=== PATIENT | male | born 1955 | race Caucasian/White ===

== ENCOUNTER 2017-08-02 12:42 | Inpatient (IN) | payer MEDICARE, MEDICAID ==
[~2017-08-02] VITALS: Ht 177.8 cm; Wt 81.7 kg
[~2017-08-02 12:42] MED LIST: AMLO-511 PO; ASPI-1132 PO; BUPR-47 PO; CARV6.2579 PO; DIVA500T69 PO; DULO60CA44 PO; FOLI1 PO; MIRALAX PO; OLAN10TA20 PO; OLAN10TA3 PO; SIMV-260 PO; THIA100 PO
[2017-08-02] MEDS ORDERED: ChlorproMAZINE HCL 100 MG TABLET PO PRN (13:30)
[2017-08-02] MEDS ORDERED: LORazepam 1 MG TABLET PO PRN (13:30)
[2017-08-02 14:01] VITALS: BP 100/65
[2017-08-02 14:47] VITALS: BP 107/71
[2017-08-02] MEDS ORDERED: INFLUENZA VIRUS VACCINE QVS 2017-18 (3YR+)/PF 60 MCG/0.5 ML SYRINGE IM ONE (15:15)
[2017-08-02 16:28] VITALS: BP 120/64
[2017-08-02] MEDS ORDERED: DULO60CA44 PO (16:43)
[2017-08-02] MEDS ORDERED: DIVA500T52 PO (16:43)
[2017-08-02] MEDS ORDERED: OLAN10TA3 PO (16:44)
[2017-08-02] MEDS ORDERED: ZIPRASIDONE HCL 60 MG CAPSULE PO SCH (17:00)
[2017-08-02] MEDS ORDERED: DIVALPROEX SODIUM 500 MG ER TABLET PO SCH (21:00)
[2017-08-03 00:37] VITALS: BP 120/61
[2017-08-03 07:56] LABS: BASOPHILS % (AUTO) 0.2 % (0.0-2.0); EOSINOPHILS % (AUTO) 0.4 % (1.0-6.0); HEMATOCRIT 33.5 % (41-53); HEMOGLOBIN 11.7 g/dL (13.5-17.5); LYMPHOCYTES # (AUTO) 1.9 K/uL (1.0-4.8); LYMPHOCYTES % (AUTO) 26.3 % (22.0-44.0); MEAN CORPUSCULAR HEMOGLOBIN 30.9 pg (26.0-34.0); MEAN CORPUSCULAR HGB CONC 34.8 G/dL (31.0-37.0); MEAN CORPUSCULAR VOLUME 89 fL (80-100); MONOCYTES # (AUTO) 0.9 K/uL (0.1-1.0); MONOCYTES % (AUTO) 12.9 % (2.0-9.0); NEUTROPHILS # (AUTO) 4.3 K/uL (1.8-7.7); NEUTROPHILS % (AUTO) 60.2 % (40.0-70.0); PLATELET COUNT (AUTO) 396 K/uL (150-450); RED BLOOD CELL COUNT(AUTO) 3.77 MIL/uL (4.50-5.90); RED CELL DISTRIBUTION WIDTH 13.1 % (11.5-14.5); WHITE BLOOD COUNT (AUTO) 7.1 K/uL (4.5-11.0)
[2017-08-03 08:00] VITALS: BP 123/76
[2017-08-03 08:28] LABS: ALANINE AMINOTRANSFERASE 43 U/L (12-78); ANION GAP 9 mmol/L (8-16); ASPARTATE AMINOTRANSFERASE 21 U/L (15-37); BILIRUBIN,TOTAL 0.5 mg/dL (0.1-1.0); CALCIUM, TOTAL 8.9 mg/dL (8.8-10.5); CARBON DIOXIDE 28 mmol/L (22-29); CHLORIDE 98 mmol/L (98-107); CHOL/HDL RATIO 2.7 (4.2-7.3); CREATININE 0.84 mg/dL (0.60-1.30); GLOMERULAR FILTR. RATE CALC > 60 mL/min (>60); POTASSIUM 3.4 mmol/L (3.5-5.1); SODIUM SERUM 135 mmol/L (136-145); THYROID STIMULATING HORMONE 0.84 uIU/mL (0.36-3.74); TOTAL PROTEIN, SERUM 7.4 g/dL (6.4-8.2); UREA NITROGEN, BLOOD 13 mg/dL (7-18); VALPROIC ACID 80 mcg/mL (50-100)
[2017-08-03] MEDS ORDERED: BuPROPion HCL XL 150 MG ER TABLET PO SCH (09:00)
[2017-08-03] MEDS ORDERED: POTASSIUM CHLORIDE 20 MEQ ER TABLET PO ONE (13:30)
[2017-08-03] MEDS ORDERED: TUBERCULIN, PURIFIED PROTEIN DERIVATIVE 5 TU/0.1 ML SYG ID ONE (16:15)
[2017-08-03] MEDS ORDERED: OLANZapine 5 MG RAPDIS TABLET PO PRN (16:15)
[2017-08-03] MEDS ORDERED: PROMETHAZINE HCL 25 MG TABLET PO PRN (16:15)
[2017-08-03] MEDS ORDERED: HydrOXYzine PAMOATE 50 MG CAPSULE PO PRN (16:15)
[2017-08-03] MEDS ORDERED: GuaiFENesin/D-METHORPHAN [SUGAR-FREE] 200-20MG/10 ML SYRUP UDCUP PO PRN (16:15)
[2017-08-03] MEDS ORDERED: MAGNESIUM HYDROXIDE SUSPENSION 30 ML UDCUP PO PRN (16:15)
[2017-08-03] MEDS ORDERED: MAG HYDROX/AL HYDROX/SIMETH ES 30 ML SUSPENSION UDCUP PO PRN (16:15)
[2017-08-03 16:41] VITALS: BP 140/69
[2017-08-03] MEDS: GABAPENTIN 300 MG CAPSULE PO SCH ×2 (17:06→20:35)
[2017-08-03] MEDS: THIAMINE HCL 100 MG TABLET PO SCH (17:06)
[2017-08-03] MEDS: DIVALPROEX SODIUM 500 MG ER TABLET PO SCH (20:35)
[2017-08-03] MEDS ORDERED: OLANZapine 5 MG RAPDIS TABLET PO SCH (21:00)
[2017-08-04 00:09] VITALS: BP 133/78
[2017-08-04] MEDS: ZOLPIDEM TARTRATE 5 MG TABLET PO PRN (00:18)
[2017-08-04 08:16] VITALS: BP 118/74
[2017-08-04] MEDS: DULoxetine HCL 20 MG CAPSULE PO SCH (09:08)
[2017-08-04] MEDS: THIAMINE HCL 100 MG TABLET PO SCH ×2 (09:08→16:39)
[2017-08-04] MEDS: GABAPENTIN 300 MG CAPSULE PO SCH ×4 (09:08→20:35)
[2017-08-04] MEDS: MULTIVITAMINS WITH MINERALS, THERAPEUTIC TABLET PO SCH (09:08)
[2017-08-04] MEDS: FOLIC ACID 1 MG TABLET PO SCH (09:08)
[2017-08-04] MEDS: ACETAMINOPHEN 325 MG TABLET PO PRN (15:59)
[2017-08-04 16:00] VITALS: BP 128/80
[2017-08-04 16:02] VITALS: BP 128/80
[2017-08-04] MEDS: OLANZapine 10 MG RAPDIS TABLET PO SCH (20:35)
[2017-08-04] MEDS: DIVALPROEX SODIUM 500 MG ER TABLET PO SCH (20:35)
[2017-08-05 01:38] VITALS: BP 132/80
[2017-08-05 08:06] VITALS: BP 141/89
[2017-08-05] MEDS: PHENYLEPHRINE/SHK LV/MIN OIL/PET 57 GM OINTMENT TP SCH ×3 (09:00→16:39)
[2017-08-05] MEDS: CHOLECALCIFEROL (VIT D3) 1,000 UNITS TABLET PO SCH (09:08)
[2017-08-05] MEDS: MULTIVITAMINS WITH MINERALS, THERAPEUTIC TABLET PO SCH (09:08)
[2017-08-05] MEDS: FOLIC ACID 1 MG TABLET PO SCH (09:08)
[2017-08-05] MEDS: GABAPENTIN 300 MG CAPSULE PO SCH ×4 (09:08→20:39)
[2017-08-05] MEDS: THIAMINE HCL 100 MG TABLET PO SCH ×2 (09:08→16:39)
[2017-08-05] MEDS: DULoxetine HCL 20 MG CAPSULE PO SCH (09:08)
[2017-08-05 16:16] VITALS: BP 139/87
[2017-08-05] MEDS: OLANZapine 10 MG RAPDIS TABLET PO SCH (20:39)
[2017-08-05] MEDS: DIVALPROEX SODIUM 500 MG ER TABLET PO SCH (20:39)
[2017-08-06 04:00] VITALS: BP 115/88
[2017-08-06] MEDS: ACETAMINOPHEN 325 MG TABLET PO PRN (04:05)
[2017-08-06 08:53] VITALS: BP 126/86
[2017-08-06] MEDS: FOLIC ACID 1 MG TABLET PO SCH (09:10)
[2017-08-06] MEDS: GABAPENTIN 300 MG CAPSULE PO SCH ×4 (09:10→20:19)
[2017-08-06] MEDS: CHOLECALCIFEROL (VIT D3) 1,000 UNITS TABLET PO SCH (09:10)
[2017-08-06] MEDS: MULTIVITAMINS WITH MINERALS, THERAPEUTIC TABLET PO SCH (09:10)
[2017-08-06] MEDS: DULoxetine HCL 20 MG CAPSULE PO SCH (09:10)
[2017-08-06] MEDS: THIAMINE HCL 100 MG TABLET PO SCH ×2 (09:10→17:09)
[2017-08-06] MEDS: PHENYLEPHRINE/SHK LV/MIN OIL/PET 57 GM OINTMENT TP SCH ×3 (09:11→17:10)
[2017-08-06 16:07] VITALS: BP 135/85
[2017-08-06] MEDS ORDERED: AZITHROMYCIN 250 MG TABLET PO ONE (20:00)
[2017-08-06] MEDS: DIVALPROEX SODIUM 500 MG ER TABLET PO SCH (20:19)
[2017-08-06] MEDS: OLANZapine 10 MG RAPDIS TABLET PO SCH (20:19)
[2017-08-07 01:00] VITALS: BP 133/94
[2017-08-07] MEDS: ACETAMINOPHEN 325 MG TABLET PO PRN ×2 (01:06→16:24)
[2017-08-07 08:39] VITALS: BP 136/85
[2017-08-07] MEDS: GABAPENTIN 300 MG CAPSULE PO SCH ×4 (08:41→20:36)
[2017-08-07] MEDS: CHOLECALCIFEROL (VIT D3) 1,000 UNITS TABLET PO SCH (08:41)
[2017-08-07] MEDS: THIAMINE HCL 100 MG TABLET PO SCH ×2 (08:41→16:38)
[2017-08-07] MEDS: DULoxetine HCL 30 MG CAPSULE PO SCH (08:41)
[2017-08-07] MEDS: MULTIVITAMINS WITH MINERALS, THERAPEUTIC TABLET PO SCH (08:41)
[2017-08-07] MEDS: FOLIC ACID 1 MG TABLET PO SCH (08:41)
[2017-08-07] MEDS: AZITHROMYCIN 250 MG TABLET PO SCH (08:41)
[2017-08-07] MEDS: PHENYLEPHRINE/SHK LV/MIN OIL/PET 57 GM OINTMENT TP SCH ×3 (08:43→16:38)
[2017-08-07] MEDS: NEOMYCIN/POLYMYXIN B/HYDROCORT 10 ML OTIC SUSPENSION AD SCH ×3 (10:00→16:38)
[2017-08-07 16:06] VITALS: BP 129/83
[2017-08-07] MEDS: OLANZapine 10 MG RAPDIS TABLET PO SCH (20:36)
[2017-08-07] MEDS: DIVALPROEX SODIUM 500 MG ER TABLET PO SCH (20:36)
[2017-08-08 04:47] VITALS: BP 111/80
[2017-08-08] MEDS: DULoxetine HCL 30 MG CAPSULE PO SCH (08:25)
[2017-08-08] MEDS: MULTIVITAMINS WITH MINERALS, THERAPEUTIC TABLET PO SCH (08:25)
[2017-08-08] MEDS: PHENYLEPHRINE/SHK LV/MIN OIL/PET 57 GM OINTMENT TP SCH ×3 (08:26→16:35)
[2017-08-08] MEDS: AZITHROMYCIN 250 MG TABLET PO SCH (08:26)
[2017-08-08] MEDS: GABAPENTIN 300 MG CAPSULE PO SCH ×4 (08:26→20:35)
[2017-08-08] MEDS: FOLIC ACID 1 MG TABLET PO SCH (08:26)
[2017-08-08] MEDS: THIAMINE HCL 100 MG TABLET PO SCH ×2 (08:26→16:35)
[2017-08-08] MEDS: CHOLECALCIFEROL (VIT D3) 1,000 UNITS TABLET PO SCH (08:26)
[2017-08-08] MEDS: NEOMYCIN/POLYMYXIN B/HYDROCORT 10 ML OTIC SUSPENSION AD SCH ×3 (08:27→16:34)
[2017-08-08 09:03] VITALS: BP 132/70
[2017-08-08 16:26] VITALS: BP 128/86
[2017-08-08] MEDS: OLANZapine 10 MG RAPDIS TABLET PO SCH (20:35)
[2017-08-08] MEDS: DIVALPROEX SODIUM 500 MG ER TABLET PO SCH (20:35)
[2017-08-08] MEDS: ZOLPIDEM TARTRATE 5 MG TABLET PO PRN (21:31)
[2017-08-08] MEDS: ACETAMINOPHEN 325 MG TABLET PO PRN (21:50)
[2017-08-09 02:14] VITALS: BP 115/81
[2017-08-09] MEDS: MULTIVITAMINS WITH MINERALS, THERAPEUTIC TABLET PO SCH (08:28)
[2017-08-09] MEDS: GABAPENTIN 300 MG CAPSULE PO SCH ×4 (08:28→20:32)
[2017-08-09] MEDS: THIAMINE HCL 100 MG TABLET PO SCH ×2 (08:28→16:40)
[2017-08-09] MEDS: CHOLECALCIFEROL (VIT D3) 1,000 UNITS TABLET PO SCH (08:29)
[2017-08-09] MEDS: FOLIC ACID 1 MG TABLET PO SCH (08:29)
[2017-08-09] MEDS: DULoxetine HCL 30 MG CAPSULE PO SCH (08:29)
[2017-08-09] MEDS: AZITHROMYCIN 250 MG TABLET PO SCH (08:29)
[2017-08-09] MEDS: PHENYLEPHRINE/SHK LV/MIN OIL/PET 57 GM OINTMENT TP SCH ×3 (08:30→16:42)
[2017-08-09] MEDS: NEOMYCIN/POLYMYXIN B/HYDROCORT 10 ML OTIC SUSPENSION AD SCH ×3 (08:30→16:41)
[2017-08-09 08:31] VITALS: BP 134/78
[2017-08-09] MEDS ORDERED: OLAN10TA22 PO (15:33)
[2017-08-09] MEDS ORDERED: DULO60CA44 PO (15:33)
[2017-08-09] MEDS ORDERED: DIVA500T52 PO (15:33)
[2017-08-09 16:08] VITALS: BP 123/82
[2017-08-09] MEDS: DIVALPROEX SODIUM 500 MG ER TABLET PO SCH (20:32)
[2017-08-09] MEDS: OLANZapine 10 MG RAPDIS TABLET PO SCH (20:33)
[2017-08-10 00:30] VITALS: BP 130/79
[2017-08-10] MEDS: ZOLPIDEM TARTRATE 5 MG TABLET PO PRN (01:11)
[2017-08-10 08:22] VITALS: BP 149/89
[2017-08-10] MEDS ORDERED: VITAD1000 PO ×2 (08:25→08:28)
[2017-08-10] MEDS ORDERED: THIA100 PO (08:28)
[2017-08-10] MEDS ORDERED: CORTSUSP AD (08:28)
[2017-08-10] MEDS ORDERED: WITC1MED4 TP (08:35)
[2017-08-10] MEDS ORDERED: DULoxetine HCL 60 MG CAPSULE PO SCH (09:00)
[2017-08-10] MEDS: CHOLECALCIFEROL (VIT D3) 1,000 UNITS TABLET PO SCH (09:21)
[2017-08-10] MEDS: MULTIVITAMINS WITH MINERALS, THERAPEUTIC TABLET PO SCH (09:21)
[2017-08-10] MEDS: AZITHROMYCIN 250 MG TABLET PO SCH (09:21)
[2017-08-10] MEDS: THIAMINE HCL 100 MG TABLET PO SCH (09:22)
[2017-08-10] MEDS: FOLIC ACID 1 MG TABLET PO SCH (09:22)
[2017-08-10] MEDS: GABAPENTIN 300 MG CAPSULE PO SCH (09:22)
[2017-08-10] MEDS: PHENYLEPHRINE/SHK LV/MIN OIL/PET 57 GM OINTMENT TP SCH (09:24)
[2017-08-10] MEDS: NEOMYCIN/POLYMYXIN B/HYDROCORT 10 ML OTIC SUSPENSION AD SCH (09:26)
== END 2017-08-10 09:30 | disposition home or self-care (01) | DRG 885 ==
LOC: EDSTATUS 13:19 → B2S 14:22 → B2X 18:06
PROVIDERS: ADMIT Psychiatry & Neurology Psychiatry; ATTEND Psychiatry & Neurology Psychiatry
PROC: 3E0234Z Introduction of Serum, Toxoid and Vaccine into Muscle, Percutaneous Approach (ICD-10-PCS; principal; 2017-08-02)
DX: F25.0 Schizoaffective disorder, bipolar type (principal); R45.851 Suicidal ideations; Z91.19 Patient's noncompliance with other medical treatment and regimen; D64.9 Anemia, unspecified; E78.5 Hyperlipidemia, unspecified; J44.9 Chronic obstructive pulmonary disease, unspecified; K21.9 Gastro-esophageal reflux disease without esophagitis; K59.00 Constipation, unspecified; Z91.013 Allergy to seafood; Z23 Encounter for immunization
CPT/HCPCS: 82607; 82746; 83036; 84132; 84439; 84443; 90471

== ENCOUNTER 2017-08-31 10:54 | Inpatient (IN) | payer MEDICARE, MEDICAID ==
[~2017-08-31] VITALS: Ht 177.8 cm; Wt 87.5 kg
[~2017-08-31 10:54] MED LIST changes: -AMLO-511 PO; -ASPI-1132 PO; -BUPR-47 PO; -CARV6.2579 PO; +CORTSUSP AD; +DIVA500T52 PO; -DIVA500T69 PO; -FOLI1 PO; -MIRALAX PO; -OLAN10TA20 PO; +OLAN10TA22 PO; -OLAN10TA3 PO; -SIMV-260 PO; -THIA100 PO; +VITAD1000 PO; +WITC1MED4 TP
[2017-08-31 11:32] VITALS: BP 140/92
[2017-08-31 11:52] VITALS: BP 120/96
[2017-08-31] MEDS ORDERED: PNEUMOCOCCAL VACCINE POLYVALENT 0.5 ML VIAL [PPSV23] IM ONE (12:15)
[2017-08-31] MEDS: PHENYLEPHRINE/SHK LV/MIN OIL/PET 57 GM OINTMENT TP SCH ×2 (13:00→16:37)
[2017-08-31] MEDS: LORazepam 2 MG TABLET PO PRN ×2 (13:08→17:25)
[2017-08-31] MEDS ORDERED: ACETAMINOPHEN 650 MG/20.3 ML SOLUTION UDCUP PO PRN (14:00)
[2017-08-31 16:28] VITALS: BP 119/67
[2017-08-31] MEDS: DOCUSATE SODIUM 250 MG CAPSULE PO SCH (16:37)
[2017-08-31] MEDS: ACETAMINOPHEN 325 MG TABLET PO PRN (17:25)
[2017-08-31] MEDS: GuaiFENesin/D-METHORPHAN [SUGAR-FREE] 200-20MG/10 ML SYRUP UDCUP PO SCH (17:38)
[2017-08-31 20:45] VITALS: BP 115/67
[2017-08-31] MEDS: OLANZapine 10 MG TABLET PO SCH (20:46)
[2017-08-31] MEDS: DIVALPROEX SODIUM 500 MG ER TABLET PO SCH (20:46)
[2017-08-31] MEDS: CARVEDILOL 6.25 MG TABLET PO SCH (20:46)
[2017-08-31] MEDS: SIMVASTATIN 20 MG TABLET PO SCH (20:47)
[2017-08-31] MEDS: FluPHENAZine HCL 10 MG TABLET PO SCH (20:47)
[2017-09-01 05:38] VITALS: BP 138/86
[2017-09-01] MEDS: LORazepam 2 MG TABLET PO PRN ×2 (05:42→13:00)
[2017-09-01] MEDS: GuaiFENesin/D-METHORPHAN [SUGAR-FREE] 200-20MG/10 ML SYRUP UDCUP PO SCH ×4 (06:26→17:50)
[2017-09-01] MEDS: FERROUS SULFATE 325 MG EC TABLET PO SCH (06:26)
[2017-09-01] MEDS: CHOLECALCIFEROL (VIT D3) 1,000 UNITS TABLET PO SCH (08:33)
[2017-09-01] MEDS: DOCUSATE SODIUM 250 MG CAPSULE PO SCH ×2 (08:33→16:01)
[2017-09-01] MEDS: AmLODIPine BESYLATE 5 MG TABLET PO SCH (08:34)
[2017-09-01] MEDS: ASPIRIN 81 MG EC TABLET PO SCH (08:34)
[2017-09-01] MEDS: PHENYLEPHRINE/SHK LV/MIN OIL/PET 57 GM OINTMENT TP SCH ×3 (08:34→16:01)
[2017-09-01] MEDS: DULoxetine HCL 60 MG CAPSULE PO SCH (08:34)
[2017-09-01 08:46] VITALS: BP 132/100
[2017-09-01 09:30] VITALS: BP 121/76
[2017-09-01 16:20] VITALS: BP 138/80
[2017-09-01] MEDS: QUEtiapine FUMARATE 100 MG TABLET PO PRN (16:28)
[2017-09-01] MEDS: CARVEDILOL 6.25 MG TABLET PO SCH (20:23)
[2017-09-01] MEDS: SIMVASTATIN 20 MG TABLET PO SCH (20:24)
[2017-09-01] MEDS: DIVALPROEX SODIUM 500 MG ER TABLET PO SCH (20:24)
[2017-09-01] MEDS: FluPHENAZine HCL 10 MG TABLET PO SCH (20:24)
[2017-09-01] MEDS: OLANZapine 10 MG TABLET PO SCH (20:24)
[2017-09-02] MEDS: GuaiFENesin/D-METHORPHAN [SUGAR-FREE] 200-20MG/10 ML SYRUP UDCUP PO SCH ×4 (00:11→18:14)
[2017-09-02 06:53] VITALS: BP 138/92
[2017-09-02] MEDS: FERROUS SULFATE 325 MG EC TABLET PO SCH (06:58)
[2017-09-02 08:30] VITALS: BP 125/70
[2017-09-02 08:34] LABS: BASOPHILS % (AUTO) 0.3 % (0.0-2.0); EOSINOPHILS % (AUTO) 4.3 % (1.0-6.0); HEMATOCRIT 34.3 % (41-53); HEMOGLOBIN 11.8 g/dL (13.5-17.5); LYMPHOCYTES % (AUTO) 30.5 % (22.0-44.0); MEAN CORPUSCULAR HEMOGLOBIN 30.7 pg (26.0-34.0); MEAN CORPUSCULAR HGB CONC 34.3 G/dL (31.0-37.0); MEAN CORPUSCULAR VOLUME 89 fL (80-100); MONOCYTES # (AUTO) 0.7 K/uL (0.1-1.0); MONOCYTES % (AUTO) 10.8 % (2.0-9.0); NEUTROPHILS # (AUTO) 3.5 K/uL (1.8-7.7); NEUTROPHILS % (AUTO) 54.1 % (40.0-70.0); PLATELET COUNT (AUTO) 314 K/uL (150-450); RED BLOOD CELL COUNT(AUTO) 3.83 MIL/uL (4.50-5.90); RED CELL DISTRIBUTION WIDTH 13.7 % (11.5-14.5)
[2017-09-02] MEDS: AmLODIPine BESYLATE 5 MG TABLET PO SCH (08:37)
[2017-09-02] MEDS: DULoxetine HCL 60 MG CAPSULE PO SCH (08:37)
[2017-09-02] MEDS: ASPIRIN 81 MG EC TABLET PO SCH (08:37)
[2017-09-02] MEDS: DOCUSATE SODIUM 250 MG CAPSULE PO SCH ×2 (08:37→17:03)
[2017-09-02] MEDS: CHOLECALCIFEROL (VIT D3) 1,000 UNITS TABLET PO SCH (08:37)
[2017-09-02] MEDS: PHENYLEPHRINE/SHK LV/MIN OIL/PET 57 GM OINTMENT TP SCH ×3 (08:38→17:03)
[2017-09-02 09:12] LABS: ALANINE AMINOTRANSFERASE 22 U/L (12-78); ALBUMIN 3.2 g/dL (3.4-5.0); ALKALINE PHOSPHATASE 58 U/L (46-116); ANION GAP 5 mmol/L (8-16); ASPARTATE AMINOTRANSFERASE 10 U/L (15-37); BILIRUBIN,TOTAL 0.3 mg/dL (0.1-1.0); CALCIUM, TOTAL 8.7 mg/dL (8.8-10.5); CARBON DIOXIDE 31 mmol/L (22-29); CHLORIDE 102 mmol/L (98-107); CHOL/HDL RATIO 3.6 (4.2-7.3); CHOLESTEROL 161 mg/dL (131-200); CREATININE 0.72 mg/dL (0.60-1.30); GLOMERULAR FILTR. RATE CALC > 60 mL/min (>60); GLUCOSE,RANDOM 98 mg/dL (70-110); HDL CHOLESTEROL 45 mg/dL (40-60); LDL CHOL (CALC.) 91 mg/dL (0-130); POTASSIUM 3.9 mmol/L (3.5-5.1); SODIUM SERUM 138 mmol/L (136-145); THYROID STIMULATING HORMONE 4.69 uIU/mL (0.36-3.74); TOTAL PROTEIN, SERUM 6.9 g/dL (6.4-8.2); TRIGLYCERIDES 123 mg/dL (15-150); UREA NITROGEN, BLOOD 9 mg/dL (7-18)
[2017-09-02] MEDS: LORazepam 2 MG TABLET PO PRN ×2 (11:01→17:03)
[2017-09-02 17:31] VITALS: BP 139/93
[2017-09-02] MEDS: QUEtiapine FUMARATE 100 MG TABLET PO PRN (18:14)
[2017-09-02] MEDS: SIMVASTATIN 20 MG TABLET PO SCH (20:26)
[2017-09-02] MEDS: DIVALPROEX SODIUM 500 MG ER TABLET PO SCH (20:26)
[2017-09-02] MEDS: OLANZapine 10 MG TABLET PO SCH (20:26)
[2017-09-02] MEDS: FluPHENAZine HCL 10 MG TABLET PO SCH (20:26)
[2017-09-02] MEDS: CARVEDILOL 6.25 MG TABLET PO SCH (20:27)
[2017-09-03] MEDS: GuaiFENesin/D-METHORPHAN [SUGAR-FREE] 200-20MG/10 ML SYRUP UDCUP PO SCH ×4 (00:05→19:26)
[2017-09-03 00:18] VITALS: BP 122/80
[2017-09-03] MEDS: LORazepam 2 MG TABLET PO PRN ×2 (00:19→10:12)
[2017-09-03] MEDS: FERROUS SULFATE 325 MG EC TABLET PO SCH (06:26)
[2017-09-03] MEDS: QUEtiapine FUMARATE 100 MG TABLET PO PRN (07:17)
[2017-09-03 08:47] VITALS: BP 125/76
[2017-09-03] MEDS: ASPIRIN 81 MG EC TABLET PO SCH (09:01)
[2017-09-03] MEDS: AmLODIPine BESYLATE 5 MG TABLET PO SCH (09:01)
[2017-09-03] MEDS: DOCUSATE SODIUM 250 MG CAPSULE PO SCH ×2 (09:01→16:16)
[2017-09-03] MEDS: CHOLECALCIFEROL (VIT D3) 1,000 UNITS TABLET PO SCH (09:01)
[2017-09-03] MEDS: DULoxetine HCL 60 MG CAPSULE PO SCH (09:01)
[2017-09-03] MEDS: PHENYLEPHRINE/SHK LV/MIN OIL/PET 57 GM OINTMENT TP SCH ×3 (09:02→16:16)
[2017-09-03] MEDS ORDERED: DOCUSATE SODIUM 250 MG CAPSULE PO PRN (14:00)
[2017-09-03 16:23] VITALS: BP 125/94
[2017-09-03 20:30] VITALS: BP 134/86
[2017-09-03] MEDS: DIVALPROEX SODIUM 500 MG ER TABLET PO SCH (20:32)
[2017-09-03] MEDS: OLANZapine 10 MG TABLET PO SCH (20:32)
[2017-09-03] MEDS: CARVEDILOL 6.25 MG TABLET PO SCH (20:32)
[2017-09-03] MEDS: SIMVASTATIN 20 MG TABLET PO SCH (20:32)
[2017-09-03] MEDS: FluPHENAZine HCL 10 MG TABLET PO SCH (20:32)
[2017-09-04 05:39] VITALS: BP 138/93
[2017-09-04] MEDS: GuaiFENesin/D-METHORPHAN [SUGAR-FREE] 200-20MG/10 ML SYRUP UDCUP PO SCH ×5 (06:33→23:51)
[2017-09-04] MEDS: FERROUS SULFATE 325 MG EC TABLET PO SCH (06:33)
[2017-09-04 08:38] VITALS: BP 149/89
[2017-09-04] MEDS: DULoxetine HCL 60 MG CAPSULE PO SCH (08:53)
[2017-09-04] MEDS: ASPIRIN 81 MG EC TABLET PO SCH (08:53)
[2017-09-04] MEDS: DOCUSATE SODIUM 250 MG CAPSULE PO SCH ×2 (08:53→16:24)
[2017-09-04] MEDS: AmLODIPine BESYLATE 5 MG TABLET PO SCH (08:53)
[2017-09-04] MEDS: CHOLECALCIFEROL (VIT D3) 1,000 UNITS TABLET PO SCH (08:53)
[2017-09-04] MEDS: PHENYLEPHRINE/SHK LV/MIN OIL/PET 57 GM OINTMENT TP SCH ×3 (08:55→16:24)
[2017-09-04 16:49] VITALS: BP 148/75
[2017-09-04 20:10] VITALS: BP 136/88
[2017-09-04] MEDS: CARVEDILOL 6.25 MG TABLET PO SCH (20:11)
[2017-09-04] MEDS: FluPHENAZine HCL 10 MG TABLET PO SCH (20:11)
[2017-09-04] MEDS: SIMVASTATIN 20 MG TABLET PO SCH (20:11)
[2017-09-04] MEDS: OLANZapine 10 MG TABLET PO SCH (20:11)
[2017-09-04] MEDS: DIVALPROEX SODIUM 500 MG ER TABLET PO SCH (20:11)
[2017-09-05 02:16] VITALS: BP 129/74
[2017-09-05] MEDS: FERROUS SULFATE 325 MG EC TABLET PO SCH (06:40)
[2017-09-05] MEDS: GuaiFENesin/D-METHORPHAN [SUGAR-FREE] 200-20MG/10 ML SYRUP UDCUP PO SCH ×3 (06:40→18:01)
[2017-09-05 08:20] VITALS: BP 134/86
[2017-09-05] MEDS: AmLODIPine BESYLATE 5 MG TABLET PO SCH (08:24)
[2017-09-05] MEDS: ASPIRIN 81 MG EC TABLET PO SCH (08:24)
[2017-09-05] MEDS: CHOLECALCIFEROL (VIT D3) 1,000 UNITS TABLET PO SCH (08:24)
[2017-09-05] MEDS: DULoxetine HCL 60 MG CAPSULE PO SCH (08:24)
[2017-09-05] MEDS: DOCUSATE SODIUM 250 MG CAPSULE PO SCH ×2 (08:24→16:16)
[2017-09-05] MEDS: PHENYLEPHRINE/SHK LV/MIN OIL/PET 57 GM OINTMENT TP SCH ×3 (08:24→16:17)
[2017-09-05] MEDS: LORazepam 2 MG TABLET PO PRN ×2 (09:27→16:20)
[2017-09-05 16:19] VITALS: BP 125/78
[2017-09-05 20:10] VITALS: BP 129/82
[2017-09-05] MEDS: SIMVASTATIN 20 MG TABLET PO SCH (20:16)
[2017-09-05] MEDS: CARVEDILOL 6.25 MG TABLET PO SCH (20:16)
[2017-09-05] MEDS: DIVALPROEX SODIUM 500 MG ER TABLET PO SCH (20:16)
[2017-09-05] MEDS: FluPHENAZine HCL 5 MG TABLET PO SCH (20:16)
[2017-09-05] MEDS: OLANZapine 10 MG TABLET PO SCH (20:17)
[2017-09-06 00:01] VITALS: BP 121/83
[2017-09-06] MEDS: GuaiFENesin/D-METHORPHAN [SUGAR-FREE] 200-20MG/10 ML SYRUP UDCUP PO SCH ×4 (00:04→18:19)
[2017-09-06] MEDS: ZOLPIDEM TARTRATE 10 MG TABLET PO PRN (00:05)
[2017-09-06] MEDS: LORazepam 2 MG TABLET PO PRN ×2 (05:23→13:59)
[2017-09-06] MEDS: FERROUS SULFATE 325 MG EC TABLET PO SCH (06:36)
[2017-09-06] MEDS: CHOLECALCIFEROL (VIT D3) 1,000 UNITS TABLET PO SCH (08:14)
[2017-09-06] MEDS: DOCUSATE SODIUM 250 MG CAPSULE PO SCH ×2 (08:14→16:40)
[2017-09-06] MEDS: QUEtiapine FUMARATE 100 MG TABLET PO PRN (08:15)
[2017-09-06] MEDS: ASPIRIN 81 MG EC TABLET PO SCH (08:15)
[2017-09-06] MEDS: AmLODIPine BESYLATE 5 MG TABLET PO SCH (08:15)
[2017-09-06] MEDS: PHENYLEPHRINE/SHK LV/MIN OIL/PET 57 GM OINTMENT TP SCH ×3 (08:15→16:40)
[2017-09-06] MEDS: DULoxetine HCL 60 MG CAPSULE PO SCH (08:15)
[2017-09-06 08:21] VITALS: BP 130/85
[2017-09-06 16:09] VITALS: BP 133/86
[2017-09-06 20:40] VITALS: BP 130/84
[2017-09-06] MEDS: OLANZapine 10 MG TABLET PO SCH (20:40)
[2017-09-06] MEDS: FluPHENAZine HCL 5 MG TABLET PO SCH (20:40)
[2017-09-06] MEDS: SIMVASTATIN 20 MG TABLET PO SCH (20:40)
[2017-09-06] MEDS: CARVEDILOL 6.25 MG TABLET PO SCH (20:41)
[2017-09-06] MEDS: DIVALPROEX SODIUM 500 MG ER TABLET PO SCH (20:41)
[2017-09-07] MEDS: GuaiFENesin/D-METHORPHAN [SUGAR-FREE] 200-20MG/10 ML SYRUP UDCUP PO SCH ×4 (00:23→18:34)
[2017-09-07 00:31] VITALS: BP 131/82
[2017-09-07] MEDS: FERROUS SULFATE 325 MG EC TABLET PO SCH (06:42)
[2017-09-07 08:19] VITALS: BP 121/74
[2017-09-07] MEDS: DOCUSATE SODIUM 250 MG CAPSULE PO SCH ×2 (09:28→16:39)
[2017-09-07] MEDS: DULoxetine HCL 60 MG CAPSULE PO SCH (09:28)
[2017-09-07] MEDS: ASPIRIN 81 MG EC TABLET PO SCH (09:29)
[2017-09-07] MEDS: CHOLECALCIFEROL (VIT D3) 1,000 UNITS TABLET PO SCH (09:29)
[2017-09-07] MEDS: AmLODIPine BESYLATE 5 MG TABLET PO SCH (09:29)
[2017-09-07] MEDS: PHENYLEPHRINE/SHK LV/MIN OIL/PET 57 GM OINTMENT TP SCH ×3 (09:29→16:40)
[2017-09-07] MEDS: LORazepam 2 MG TABLET PO PRN (10:41)
[2017-09-07 16:07] VITALS: BP 120/86
[2017-09-07] MEDS: BENZTROPINE MESYLATE 1 MG TABLET PO SCH (16:39)
[2017-09-07 20:36] VITALS: BP 135/86
[2017-09-07] MEDS: DIVALPROEX SODIUM 500 MG ER TABLET PO SCH (20:37)
[2017-09-07] MEDS: CARVEDILOL 6.25 MG TABLET PO SCH (20:37)
[2017-09-07] MEDS: SIMVASTATIN 20 MG TABLET PO SCH (20:37)
[2017-09-07] MEDS: FluPHENAZine HCL 5 MG TABLET PO SCH (20:38)
[2017-09-07] MEDS: OLANZapine 10 MG TABLET PO SCH (20:38)
[2017-09-08 00:36] VITALS: BP 123/94
[2017-09-08] MEDS: GuaiFENesin/D-METHORPHAN [SUGAR-FREE] 200-20MG/10 ML SYRUP UDCUP PO SCH ×4 (00:36→17:56)
[2017-09-08] MEDS: ZOLPIDEM TARTRATE 10 MG TABLET PO PRN (00:36)
[2017-09-08] MEDS: FERROUS SULFATE 325 MG EC TABLET PO SCH (06:35)
[2017-09-08] MEDS: AmLODIPine BESYLATE 5 MG TABLET PO SCH (08:23)
[2017-09-08] MEDS: CHOLECALCIFEROL (VIT D3) 1,000 UNITS TABLET PO SCH (08:23)
[2017-09-08] MEDS: ASPIRIN 81 MG EC TABLET PO SCH (08:23)
[2017-09-08] MEDS: BENZTROPINE MESYLATE 1 MG TABLET PO SCH ×2 (08:23→16:57)
[2017-09-08] MEDS: DULoxetine HCL 60 MG CAPSULE PO SCH (08:23)
[2017-09-08] MEDS: DOCUSATE SODIUM 250 MG CAPSULE PO SCH ×2 (08:23→16:57)
[2017-09-08] MEDS: PHENYLEPHRINE/SHK LV/MIN OIL/PET 57 GM OINTMENT TP SCH ×3 (08:24→16:57)
[2017-09-08] MEDS: ACETAMINOPHEN 325 MG TABLET PO PRN (08:24)
[2017-09-08] MEDS: LORazepam 2 MG TABLET PO PRN (08:27)
[2017-09-08 08:59] VITALS: BP 132/82
[2017-09-08] MEDS: QUEtiapine FUMARATE 100 MG TABLET PO PRN (09:57)
[2017-09-08 16:06] VITALS: BP 125/87
[2017-09-08] MEDS: CARVEDILOL 6.25 MG TABLET PO SCH (19:58)
[2017-09-08] MEDS: DIVALPROEX SODIUM 500 MG ER TABLET PO SCH (19:59)
[2017-09-08] MEDS: FluPHENAZine HCL 5 MG TABLET PO SCH (19:59)
[2017-09-08] MEDS: SIMVASTATIN 20 MG TABLET PO SCH (19:59)
[2017-09-08] MEDS: OLANZapine 10 MG TABLET PO SCH (19:59)
[2017-09-09 00:51] VITALS: BP 122/93
[2017-09-09] MEDS: GuaiFENesin/D-METHORPHAN [SUGAR-FREE] 200-20MG/10 ML SYRUP UDCUP PO SCH ×4 (01:13→18:01)
[2017-09-09] MEDS: ZOLPIDEM TARTRATE 10 MG TABLET PO PRN ×2 (01:19→22:29)
[2017-09-09] MEDS: FERROUS SULFATE 325 MG EC TABLET PO SCH (06:21)
[2017-09-09 08:00] VITALS: BP 137/76
[2017-09-09] MEDS: DULoxetine HCL 60 MG CAPSULE PO SCH (08:05)
[2017-09-09] MEDS: ASPIRIN 81 MG EC TABLET PO SCH (08:05)
[2017-09-09] MEDS: DOCUSATE SODIUM 250 MG CAPSULE PO SCH ×2 (08:05→16:34)
[2017-09-09] MEDS: BENZTROPINE MESYLATE 1 MG TABLET PO SCH ×2 (08:05→16:34)
[2017-09-09] MEDS: AmLODIPine BESYLATE 5 MG TABLET PO SCH (08:05)
[2017-09-09] MEDS: CHOLECALCIFEROL (VIT D3) 1,000 UNITS TABLET PO SCH (08:05)
[2017-09-09] MEDS: LORazepam 2 MG TABLET PO PRN (08:06)
[2017-09-09] MEDS: PHENYLEPHRINE/SHK LV/MIN OIL/PET 57 GM OINTMENT TP SCH ×3 (08:07→16:35)
[2017-09-09 16:19] VITALS: BP 130/78
[2017-09-09 20:24] VITALS: BP 140/84
[2017-09-09] MEDS: SIMVASTATIN 20 MG TABLET PO SCH (20:26)
[2017-09-09] MEDS: OLANZapine 10 MG TABLET PO SCH (20:26)
[2017-09-09] MEDS: CARVEDILOL 6.25 MG TABLET PO SCH (20:26)
[2017-09-09] MEDS: FluPHENAZine HCL 5 MG TABLET PO SCH (20:27)
[2017-09-09] MEDS: DIVALPROEX SODIUM 500 MG ER TABLET PO SCH (20:27)
[2017-09-10] MEDS: GuaiFENesin/D-METHORPHAN [SUGAR-FREE] 200-20MG/10 ML SYRUP UDCUP PO SCH ×5 (00:06→23:28)
[2017-09-10 00:15] VITALS: BP 140/91
[2017-09-10] MEDS: FERROUS SULFATE 325 MG EC TABLET PO SCH (06:21)
[2017-09-10] MEDS: BENZTROPINE MESYLATE 1 MG TABLET PO SCH ×2 (08:18→16:32)
[2017-09-10] MEDS: ASPIRIN 81 MG EC TABLET PO SCH (08:18)
[2017-09-10] MEDS: AmLODIPine BESYLATE 5 MG TABLET PO SCH (08:18)
[2017-09-10] MEDS: DOCUSATE SODIUM 250 MG CAPSULE PO SCH ×2 (08:18→16:32)
[2017-09-10] MEDS: DULoxetine HCL 60 MG CAPSULE PO SCH (08:18)
[2017-09-10] MEDS: CHOLECALCIFEROL (VIT D3) 1,000 UNITS TABLET PO SCH (08:18)
[2017-09-10] MEDS: PHENYLEPHRINE/SHK LV/MIN OIL/PET 57 GM OINTMENT TP SCH ×3 (08:19→17:00)
[2017-09-10 08:41] VITALS: BP 146/86
[2017-09-10] MEDS: QUEtiapine FUMARATE 100 MG TABLET PO PRN (11:01)
[2017-09-10 16:04] VITALS: BP 119/75
[2017-09-10 20:28] VITALS: BP 138/86
[2017-09-10] MEDS: SIMVASTATIN 20 MG TABLET PO SCH (20:30)
[2017-09-10] MEDS: CARVEDILOL 6.25 MG TABLET PO SCH (20:30)
[2017-09-10] MEDS: DIVALPROEX SODIUM 500 MG ER TABLET PO SCH (20:30)
[2017-09-10] MEDS: FluPHENAZine HCL 5 MG TABLET PO SCH (20:31)
[2017-09-10] MEDS: OLANZapine 10 MG TABLET PO SCH (20:31)
[2017-09-10] MEDS: LORazepam 2 MG TABLET PO PRN (22:39)
[2017-09-10] MEDS: ZOLPIDEM TARTRATE 10 MG TABLET PO PRN (23:28)
[2017-09-11 00:01] VITALS: BP 141/85
[2017-09-11] MEDS: GuaiFENesin/D-METHORPHAN [SUGAR-FREE] 200-20MG/10 ML SYRUP UDCUP PO SCH ×3 (06:55→18:37)
[2017-09-11] MEDS: LORazepam 2 MG TABLET PO PRN (06:55)
[2017-09-11] MEDS: FERROUS SULFATE 325 MG EC TABLET PO SCH (06:55)
[2017-09-11 08:14] VITALS: BP 122/92
[2017-09-11] MEDS: ASPIRIN 81 MG EC TABLET PO SCH (08:15)
[2017-09-11] MEDS: AmLODIPine BESYLATE 5 MG TABLET PO SCH (08:15)
[2017-09-11] MEDS: CHOLECALCIFEROL (VIT D3) 1,000 UNITS TABLET PO SCH (08:15)
[2017-09-11] MEDS: DOCUSATE SODIUM 250 MG CAPSULE PO SCH ×2 (08:15→16:09)
[2017-09-11] MEDS: BENZTROPINE MESYLATE 1 MG TABLET PO SCH ×2 (08:15→16:09)
[2017-09-11] MEDS: DULoxetine HCL 60 MG CAPSULE PO SCH (08:15)
[2017-09-11] MEDS: PHENYLEPHRINE/SHK LV/MIN OIL/PET 57 GM OINTMENT TP SCH ×3 (08:17→16:09)
[2017-09-11] MEDS: QUEtiapine FUMARATE 100 MG TABLET PO PRN (10:13)
[2017-09-11 16:00] VITALS: BP 124/76
[2017-09-11 20:00] VITALS: BP 120/83
[2017-09-11] MEDS: OLANZapine 10 MG TABLET PO SCH (20:03)
[2017-09-11] MEDS: DIVALPROEX SODIUM 500 MG ER TABLET PO SCH (20:03)
[2017-09-11] MEDS: CARVEDILOL 6.25 MG TABLET PO SCH (20:03)
[2017-09-11] MEDS: SIMVASTATIN 20 MG TABLET PO SCH (20:04)
[2017-09-11] MEDS: FluPHENAZine HCL 5 MG TABLET PO SCH (20:04)
[2017-09-12] MEDS: GuaiFENesin/D-METHORPHAN [SUGAR-FREE] 200-20MG/10 ML SYRUP UDCUP PO SCH ×5 (00:37→23:19)
[2017-09-12 01:40] VITALS: BP 129/65
[2017-09-12] MEDS: FERROUS SULFATE 325 MG EC TABLET PO SCH (06:30)
[2017-09-12] MEDS: DOCUSATE SODIUM 250 MG CAPSULE PO SCH ×2 (08:20→16:10)
[2017-09-12] MEDS: BENZTROPINE MESYLATE 1 MG TABLET PO SCH ×2 (08:20→16:10)
[2017-09-12] MEDS: AmLODIPine BESYLATE 5 MG TABLET PO SCH (08:20)
[2017-09-12] MEDS: DULoxetine HCL 60 MG CAPSULE PO SCH (08:20)
[2017-09-12] MEDS: CHOLECALCIFEROL (VIT D3) 1,000 UNITS TABLET PO SCH (08:20)
[2017-09-12] MEDS: ASPIRIN 81 MG EC TABLET PO SCH (08:20)
[2017-09-12] MEDS: PHENYLEPHRINE/SHK LV/MIN OIL/PET 57 GM OINTMENT TP SCH ×3 (08:22→16:10)
[2017-09-12 08:33] VITALS: BP 125/81
[2017-09-12 16:07] VITALS: BP 112/77
[2017-09-12] MEDS: LORazepam 2 MG TABLET PO PRN (19:06)
[2017-09-12 20:10] VITALS: BP 122/85
[2017-09-12] MEDS: FluPHENAZine HCL 5 MG TABLET PO SCH (20:12)
[2017-09-12] MEDS: DIVALPROEX SODIUM 500 MG ER TABLET PO SCH (20:12)
[2017-09-12] MEDS: SIMVASTATIN 20 MG TABLET PO SCH (20:12)
[2017-09-12] MEDS: CARVEDILOL 6.25 MG TABLET PO SCH (20:12)
[2017-09-12] MEDS: OLANZapine 10 MG TABLET PO SCH (20:12)
[2017-09-12] MEDS: ZOLPIDEM TARTRATE 10 MG TABLET PO PRN (23:19)
[2017-09-13 00:53] VITALS: BP 117/80
[2017-09-13] MEDS: GuaiFENesin/D-METHORPHAN [SUGAR-FREE] 200-20MG/10 ML SYRUP UDCUP PO SCH ×3 (05:50→18:45)
[2017-09-13] MEDS: FERROUS SULFATE 325 MG EC TABLET PO SCH (06:53)
[2017-09-13] MEDS: DULoxetine HCL 60 MG CAPSULE PO SCH (08:22)
[2017-09-13] MEDS: ASPIRIN 81 MG EC TABLET PO SCH (08:22)
[2017-09-13] MEDS: BENZTROPINE MESYLATE 1 MG TABLET PO SCH ×2 (08:22→16:35)
[2017-09-13] MEDS: DOCUSATE SODIUM 250 MG CAPSULE PO SCH ×2 (08:22→16:35)
[2017-09-13] MEDS: CHOLECALCIFEROL (VIT D3) 1,000 UNITS TABLET PO SCH (08:22)
[2017-09-13] MEDS: AmLODIPine BESYLATE 5 MG TABLET PO SCH (08:22)
[2017-09-13] MEDS: PHENYLEPHRINE/SHK LV/MIN OIL/PET 57 GM OINTMENT TP SCH ×3 (08:24→16:36)
[2017-09-13 08:32] VITALS: BP 121/83
[2017-09-13 16:22] VITALS: BP 148/90
[2017-09-13] MEDS: DIVALPROEX SODIUM 500 MG ER TABLET PO SCH (20:34)
[2017-09-13] MEDS: OLANZapine 10 MG TABLET PO SCH (20:34)
[2017-09-13] MEDS: CARVEDILOL 6.25 MG TABLET PO SCH (20:34)
[2017-09-13 20:35] VITALS: BP 126/85
[2017-09-13] MEDS: SIMVASTATIN 20 MG TABLET PO SCH (20:35)
[2017-09-13] MEDS: FluPHENAZine HCL 5 MG TABLET PO SCH (20:35)
[2017-09-14] MEDS: GuaiFENesin/D-METHORPHAN [SUGAR-FREE] 200-20MG/10 ML SYRUP UDCUP PO SCH ×4 (00:20→18:59)
[2017-09-14 04:23] VITALS: BP 124/90
[2017-09-14] MEDS: LORazepam 2 MG TABLET PO PRN ×2 (04:50→15:56)
[2017-09-14] MEDS: FERROUS SULFATE 325 MG EC TABLET PO SCH (06:23)
[2017-09-14 08:24] VITALS: BP 132/90
[2017-09-14] MEDS: ASPIRIN 81 MG EC TABLET PO SCH (08:32)
[2017-09-14] MEDS: DOCUSATE SODIUM 250 MG CAPSULE PO SCH ×2 (08:32→16:33)
[2017-09-14] MEDS: AmLODIPine BESYLATE 5 MG TABLET PO SCH (08:32)
[2017-09-14] MEDS: DULoxetine HCL 60 MG CAPSULE PO SCH (08:32)
[2017-09-14] MEDS: BENZTROPINE MESYLATE 1 MG TABLET PO SCH ×2 (08:32→16:33)
[2017-09-14] MEDS: CHOLECALCIFEROL (VIT D3) 1,000 UNITS TABLET PO SCH (08:32)
[2017-09-14] MEDS: PHENYLEPHRINE/SHK LV/MIN OIL/PET 57 GM OINTMENT TP SCH ×3 (08:38→16:33)
[2017-09-14] MEDS: QUEtiapine FUMARATE 100 MG TABLET PO PRN (09:53)
[2017-09-14 16:00] VITALS: BP 138/87
[2017-09-14 20:30] VITALS: BP 141/84
[2017-09-14] MEDS: FluPHENAZine HCL 5 MG TABLET PO SCH (20:32)
[2017-09-14] MEDS: DIVALPROEX SODIUM 500 MG ER TABLET PO SCH (20:32)
[2017-09-14] MEDS: SIMVASTATIN 20 MG TABLET PO SCH (20:32)
[2017-09-14] MEDS: CARVEDILOL 6.25 MG TABLET PO SCH (20:32)
[2017-09-14] MEDS: OLANZapine 10 MG TABLET PO SCH (20:32)
[2017-09-15 00:07] VITALS: BP 123/78
[2017-09-15] MEDS ORDERED: FLUP5 PO (05:51)
[2017-09-15] MEDS ORDERED: OLAN10TA3 PO (05:51)
[2017-09-15] MEDS ORDERED: ASPI81 PO (05:51)
[2017-09-15] MEDS ORDERED: SIMV-260 PO (05:51)
[2017-09-15] MEDS ORDERED: DOCU250C91 PO (05:51)
[2017-09-15] MEDS ORDERED: GUAIFDM PO (05:51)
[2017-09-15] MEDS ORDERED: FERR-89 PO (05:51)
[2017-09-15] MEDS ORDERED: BENZ1TAB10 PO (05:51)
[2017-09-15] MEDS ORDERED: CARV6 PO (05:51)
[2017-09-15] MEDS ORDERED: AMLO-511 PO (05:51)
[2017-09-15] MEDS: GuaiFENesin/D-METHORPHAN [SUGAR-FREE] 200-20MG/10 ML SYRUP UDCUP PO SCH ×2 (06:04)
[2017-09-15] MEDS: FERROUS SULFATE 325 MG EC TABLET PO SCH (07:04)
[2017-09-15] MEDS: LORazepam 2 MG TABLET PO PRN (07:21)
[2017-09-15] MEDS: PHENYLEPHRINE/SHK LV/MIN OIL/PET 57 GM OINTMENT TP SCH (08:09)
[2017-09-15] MEDS: DOCUSATE SODIUM 250 MG CAPSULE PO SCH (08:10)
[2017-09-15] MEDS: BENZTROPINE MESYLATE 1 MG TABLET PO SCH (08:10)
[2017-09-15] MEDS: ASPIRIN 81 MG EC TABLET PO SCH (08:10)
[2017-09-15] MEDS: AmLODIPine BESYLATE 5 MG TABLET PO SCH (08:10)
[2017-09-15] MEDS: CHOLECALCIFEROL (VIT D3) 1,000 UNITS TABLET PO SCH (08:10)
[2017-09-15] MEDS: DULoxetine HCL 60 MG CAPSULE PO SCH (08:10)
[2017-09-15 08:41] VITALS: BP 115/97
== END 2017-09-15 11:05 | disposition home or self-care (01) | DRG 885 ==
LOC: B2S 11:32 → B2X 12:00
PROVIDERS: ADMIT Psychiatry & Neurology Psychiatry; ATTEND Psychiatry & Neurology Psychiatry
PROC: 3E0234Z Introduction of Serum, Toxoid and Vaccine into Muscle, Percutaneous Approach (ICD-10-PCS; principal; 2017-08-31)
DX: F25.9 Schizoaffective disorder, unspecified (principal); R45.851 Suicidal ideations; D64.9 Anemia, unspecified; F32.9 Major depressive disorder, single episode, unspecified; E78.5 Hyperlipidemia, unspecified; I10 Essential (primary) hypertension; Z79.82 Long term (current) use of aspirin; Z79.899 Other long term (current) drug therapy; Z23 Encounter for immunization
CPT/HCPCS: 82652; 84443; 87081; 90471